=== PATIENT | female | born 1980 | race Caucasian/White ===

== ENCOUNTER 2018-03-06 22:44 | Emergency (ER) | payer OTHER ==
[~2018-03-06] VITALS: Ht 163.8 cm; Wt 54.4 kg
[~2018-03-06 22:44] MED LIST: MIRENA52 MG; MULTIVITAMIN1 TAB PO; PERCOCET 325 MG1 TA2 PO
[2018-03-06 23:25] LABS: ABSOLUTE BASOPHIL COUNT 0 /CUMM (0.0-0.2); ABSOLUTE EOSINOPHIL COUNT 0.2 /CUMM (0.0-0.7); ABSOLUTE GRANULOCYTE CT 3.4 /CUMM (1.4-6.5); ABSOLUTE LYMPH COUNT 3.3 /CUMM (1.2-3.4); ABSOLUTE MONOCYTE COUNT 0.6 /CUMM (0.10-0.60); BASOPHIL % 0.5 % (0.0-2.0); EOSINOPHIL % 2.5 % (0-5); GRANULOCYTE % 44.4 % (42.2-75.2); HEMATOCRIT 37.9 % (37-47); MEAN CORPUSCULAR HGB 31.1 PG (27.0-31.0); MEAN CORPUSCULAR HGB CONC 33.7 G/DL (33.0-37.0); MEAN CORPUSCULAR VOLUME 92.3 FL (81.0-99.0); MEAN PLATELET VOLUME 7.3 FL (7.4-10.4); PLATELET COUNT 320 /CUMM (130-400); RBC DISTRIBUTION WIDTH 13.2 % (11.5-14.5); WHITE BLOOD CELL COUNT 7.6 /CUMM (4.8-10.8)
--- NOTE | 2018-03-06 23:41 | ED CARDIAC/CP/PALPITATIONS ---
History of Present Illness General Chief Complaint: General Adult Stated Complaint: "CP, LT ARM TINGLING" Source: patient Exam Limitations: no limitations Vital Signs & Intake/Output Vital Signs & Intake/Output Vital Signs Date Time Temp Pulse Resp B/P B/P Pulse O2 O2 Flow FiO2 Mean Ox Delivery Rate 03/07 0046 97.2 68 16 122/67 99 Room Air 03/06 2255 97.6 91 18 130/77 99 Room Air ED Intake and Output 03/07 0000 03/06 1200 Intake Total Output Total Balance Patient 120 lb Weight Weight Reported by Patient Measurement Method Allergies Coded Allergies: NO KNOWN ALLERGIES (11/21/14) Reconcile Medications Ibuprofen 600 MG TABLET 1 TAB PO TID PRN PAIN with food Levonorgestrel (Mirena) 20 MCG/24 HOUR (5 YEARS) IUD CONTROL (Reported) Multivitamin (Multiple Vitamins) 1 EACH TABLET 1 TAB PO DAILY SUPPLEMENT ( Reported) Triage Note: PT TO ED C/O TIGHTNESS UNDER LEFT BREAST, WORSE WITH PALPATION, FOR 2 DAYS. 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 PT TOOK 325 MG ASA AT HOME AND THEN CAME TO ED. PT STATES SHE HAS BEEN ANXIOUS ABOUT BREAST CA HER MOM WAS DIAGNOSED WITH BREAST CA "AND I'VE BEEN HAVING THIS CHEST PAIN" SO SAW PCP YESTERDAY. HAD EKG AND BLOODWORK, INCLUDING D-DIMER, ALL NEGATIVE. DENIES N/V/DIZZINESS/DIAPHORESIS. HAS BEEN BELCHING FREQUENTLY Triage Nurses Notes Reviewed? yes Onset: Gradual Duration: day(s): Timing: recent history Quality/Severity: mild Location: central Radiation: no radiation Activities at Onset: none : No Patient currently breastfeeds: No HPI: 37 yo woman in prior good health with 3 days of intermittent chest pain "a tightness" and back pain. "I saw my primary care doctor... had an ekg and blood work... it was all normal.... but then I still felt a tightness in my chest." "This evening, I felt my left hand tingling... like I hit a nerve." She did not have chest discomfort when this symptom arose. She notes no cough, phlegm, wheeze, chills, abdominal discomfort. She notes, "it hurts when I press my chest." She is otherwise well. Past History Travel History Traveled to [place] past 21 day No Medical History Any Pertinent Medical History? see below for history Neurological: NONE EENT: NONE Cardiovascular: NONE Respiratory: NONE Gastrointestinal: NONE Hepatic: NONE Renal: NONE Musculoskeletal: NONE Psychiatric: NONE Endocrine: NONE Blood Disorders: NONE Cancer(s): NONE CHIEF CONTROLLER/Reproductive: NONE Surgical History Surgical History: none Psychosocial History What is your primary language Sierra Leonean Tobacco Use: Never used ETOH Use: occasional use Illicit Drug Use: denies illicit drug use Family History Hx Contributory? No Review of Systems Review of Systems Constitutional: Reports: no symptoms. EENTM: Reports: no symptoms. Respiratory: Reports: no symptoms. Cardiovascular: Reports: no symptoms. GI: Reports: no symptoms. Genitourinary: Reports: no symptoms. Musculoskeletal: Reports: no symptoms. Skin: Reports: no symptoms. Neurological/Psychological: Reports: no symptoms. Hematologic/Endocrine: Reports: no symptoms. Immunologic/Allergic: Reports: no symptoms. All Other Systems: Reviewed and Negative Physical Exam Physical Exam General Appearance: well developed/nourished, no apparent distress Head: atraumatic, normal appearance Eyes: Bilateral: normal appearance. Ears, Nose, Throat: normal pharynx, normal ENT inspection Neck: normal inspection, supple, full range of motion Respiratory: normal breath sounds, no respiratory distress, parasternal chest wall tenderness to palpation. , bilateral lower rib cage tenderness to palpation Cardiovascular: regular rate/rhythm Gastrointestinal: normal bowel sounds, soft, non-tender Back: normal inspection, muscle spasm, no vertebral tenderness Extremities: normal inspection, normal capillary refill, normal range of motion, no edema Neurologic/Psych: no motor/sensory deficits, awake, alert, oriented x 3 Skin: intact, normal color, warm/dry Core Measures ACS in differential dx? No CVA/TIA Diagnosis No Sepsis Present: No Sepsis Focused Exam Completed? No Progress Differential Diagnosis: costochrondritis vs other Plan of Care: Orders Procedure Date/time Status HUMAN BETA HCG SCREEN 03/06 2310 Complete D-DIMER 03/06 2310 Complete TROPONIN LEVEL 03/06 2303 Complete LIPASE 03/06 2303 Complete COMPREHENSIVE METABOLIC PANEL 03/06 2303 Complete CBC WITHOUT DIFFERENTIAL 03/06 2303 Complete EKG 03/06 2247 Active Laboratory Tests 03/06/18 2310: Anion Gap 13, Estimated GFR > 60, BUN/Creatinine Ratio 21.7, Glucose 115 H, Calcium 9.5, Total Bilirubin 0.5, AST 25, ALT 28, Alkaline Phosphatase 58, Troponin I < 0.01, Total Protein 7.9, Albumin 4.5, Globulin 3.4, Albumin/ Globulin Ratio 1.3, Lipase 86, Total Beta HCG NEGATIVE, D-Dimer High Sensitivty < 200, CBC w Diff NO MAN DIFF REQ, RBC 4.10 L, MCV 92.3, MCH 31.1 H, MCHC 33.7 , RDW 13.2, MPV 7.3 L, Gran % 44.4, Lymphocytes % 44.2, Monocytes % 8.4, Eosinophils % 2.5, Basophils % 0.5, Absolute Granulocytes 3.4, Absolute Lymphocytes 3.3, Absolute Monocytes 0.6, Absolute Eosinophils 0.2, Absolute Basophils 0 03/06/182307: Total Beta HCG Cancelled, D-Dimer High Sensitivty Cancelled Diagnostic Imaging: Viewed by Me: Radiology Read. Discussed w/RAD: Radiology Read. CXR Impression: PATIENT: ЮЛИЯ AMAYA PRESENT AGE: 37 PATIENT ACCOUNT NO: [id number] : 81 LOCATION: [facility] ORDERING PHYSICIAN: Miguel Acosta MD SERVICE DATE: 03/06/18 EXAM TYPE: RAD - XRY- PORTABLE CHEST XRAY EXAMINATION: XR PORTABLE CHEST CLINICAL INFORMATION: Chest pain COMPARISON: None TECHNIQUE: Portable frontal view of the chest was obtained. FINDINGS: The lungs are clear with no focal consolidation. No evidence of pneumothorax, pulmonary edema, or pleural effusions. The cardiomediastinal silhouette is unremarkable. No acute osseous findings. IMPRESSION: No acute cardiopulmonary findings. DICTATED BY: Moises Headley MD DATE/TIME DICTATED:18 POLITICAL CONSULTANT:EMILY DATE/TIME TRANSCRIBED:03/07/1818 CONFIDENTIAL, DO NOT COPY WITHOUT APPROPRIATE AUTHORIZATION. <Electronically signed in Other Vendor System> SIGNED BY: Moises Headley MD 03/07/1823 Initial ED EKG: normal axis, normal intervals, normal p-waves, normal QRS complex, normal sinus rhythm Departure Departure Disposition: HOME OR SELF CARE Condition: Stable Clinical Impression Primary Impression: Chest wall pain Referrals: Leti Han MD (PCP/Family) Departure Forms: Customer Survey General Discharge Information Prescriptions: Current Visit Scripts Ibuprofen 1 TAB PO TID PRN PAIN #30 TAB with food Comments 03/07/18, 0:40... pt with neg trop/ekg/dimer after 2-3 days of symptoms.... pt with reproducible chest wall tenderness.... pt safe for discharge. close follow up encouraged, NSAIDS. Critical Care Note Critical Care Note Critical Care Time: non-applicable
--- NOTE | 2018-03-07 00:24 | RADIOLOGY REPORT ---
EXAMINATION: XR PORTABLE CHEST CLINICAL INFORMATION: Chest pain COMPARISON: None TECHNIQUE: Portable frontal view of the chest was obtained. FINDINGS: The lungs are clear with no focal consolidation. No evidence of pneumothorax, pulmonary edema, or pleural effusions. The cardiomediastinal silhouette is unremarkable. No acute osseous findings. IMPRESSION: No acute cardiopulmonary findings.
[2018-03-07] MEDS ORDERED: IBUPROFEN600 M1 PO (00:42)
[2018-03-07 00:46] VITALS: BP 122/67
== END 2018-03-07 00:46 ==
LOC: ERH 22:44
PROVIDERS: Internal Medicine
DX: R07.89 Other chest pain (principal)
CPT/HCPCS: 71045; 93005; 93010